=== PATIENT | female | born 1990 ===

== ENCOUNTER 2018-05-27 06:16 | Inpatient (IN) | payer OTHER ==
--- NOTE | 2018-05-17 13:19 | PAT Medication Instructions ---
Service Date May 17, 2018. Current Home Medication List Calcium Carbonate-Vitamin D (Calcium), 1 TAB PO QPM Multivit (), 1 TAB PO QPM Medication Instructions For Your Scheduled Surgery - Take the following medications as scheduled the night before surgery: Calcium Carbonate-Vitamin D (Calcium), 1 TAB PO QPM Multivit (), 1 TAB PO QPM If you have any questions please call us at [phone] or [phone] or [phone]
[2018-05-17 13:23] LABS: BASO % 0.2 %; BASO ABS # 0.02 K/uL (0-0.2); EOS % 0.7 %; EOS ABS # 0.08 K/uL (0-0.5); HEMATOCRIT 35.5 % (37-47); HEMOGLOBIN 12.1 g/dL (12.0-16.0); IG# 0.23 K/uL (0.00-0.02); LYMPH % 13.8 %; MEAN CELL VOLUME 87.2 fL (80-100); MEAN CORPUSCULAR HEMOGLOBIN 29.7 pg (25-34); MEAN CORPUSCULAR HGB CONC 34.1 g/dl (32-36); MEAN PLATELET VOLUME 10.8 fL (7.4-10.4); MONO % 6.6 %; MONO ABS # 0.72 K/uL (0.11-0.59); NEUT % 76.6 %; PLATELET COUNT 189 K/uL (130-400); RED CELL DISTRIBUTION WIDTH CV 13.3 % (11.5-14.5); RED CELL DISTRIBUTION WIDTH SD 42.6 fL (36.4-46.3); WHITE BLOOD COUNT 10.85 K/uL (4.8-10.8)
--- NOTE | 2018-05-24 17:35 | HISTORY & PHYSICAL EXAMINATION ---
DATE OF ADMISSION: 05/27/2018 HISTORY OF PRESENT ILLNESS: Emani is in her first . She will be 39 weeks on 05/27/2018. Her baby is in breech presentation and she is scheduled for . The patient was a late transfer of care, was breech on arrival for us when we received her at 35 weeks. She was getting her care originally in [place]. Patient is not interested in a trial of external cephalic version. PAST MEDICAL HISTORY: She is healthy. HISTORY: This is her first . Her blood type is O positive. LABORATORIES: Her labs have been negative. Chlamydia, gonorrhea, negative. HIV, hepatitis negative and her group B strep is negative. PAST SURGICAL HISTORY: None. MEDICATIONS: vitamins. MEDICATION ALLERGIES: None. SOCIAL HISTORY: She is . REVIEW OF SYSTEMS: Negative. PHYSICAL EXAMINATION: VITAL SIGNS: Stable. She is afebrile. Her weight is 173.2 pounds. CHEST: Clear. CARDIOVASCULAR: Normal rate and rhythm. No audible murmur. ABDOMEN: Gravid, 36 cm symphysis fundal height. heart rate tones 142. EXTREMITIES: Negative. IMPRESSION AND PLAN: The baby remains breech, was assessed by Dr. Chavez on 05/24/2018 and still breech. Please see other H+P, this was cutoff at this point , . MTDD
--- NOTE | 2018-05-24 17:36 | HISTORY & PHYSICAL EXAMINATION ---
DATE OF ADMISSION: 05/27/2018 HISTORY OF PRESENT ILLNESS: The patient is scheduled for a as she is in breech presentation and she will be at 39 weeks on 05/27/2018. This is her first . The patient was a late transfer at 35 weeks. She received her care in [place]. Her care was uncomplicated. Her labs were normal and as mentioned this is her first . PAST MEDICAL HISTORY: Healthy. PAST SURGICAL HISTORY: No major surgeries. MEDICATIONS: vitamins. MEDICATION ALLERGIES: None. REVIEW OF SYSTEMS: Negative. PHYSICAL EXAMINATION: VITAL SIGNS: Stable. She is afebrile. Weight is 173 pounds. CHEST: Clear. CARDIOVASCULAR: Normal rate and rhythm. No audible murmur. ABDOMEN: Gravid, symphysis fundal height 37 cm. EXTREMITIES: Negative. IMPRESSION AND PLAN: Offered external cephalic version and declined. The patient is breech presentation. We did not recommend labor for this. section was recommended. She agrees. Discussed risks including bleeding, infection, injury to bowel, bladder, ureter, vessels, deep vein thrombosis, and pulmonary embolus. Discussed possible injury to the baby as well. Alternatives discussed as well. The patient is scheduled for a low segment transverse section on 05/27/2018. Of course will make sure the baby is still in breech presentation at that time.
[~2018-05-27] VITALS: Ht 160 cm; Wt 78.6 kg
[2018-05-27] VITALS (9 sets, daily range): BP systolic 108–116; BP diastolic 66–74; PULSE 79–86; TEMP 36.6–36.7; O2SAT 94–99; Ht 160 cm; Wt 78.6 kg
[~2018-05-27 06:16] MED LIST: CALC-51 PO; CEFAZOLIN 2000MG IV PUSH 15 ML IV SCH; CEFAZOLIN IV 2,000 MG in SYRINGE 0 ML IV SCH; CITRIC ACID/SODIUM CITRATE 15 ML UDC PO SCH; LACTATED RINGER'S 1000ML 1,000 ML IV SCH; PRENTAB65 PO
[2018-05-27] MEDS ORDERED: PATIENT'S ALLERGY INFO NEEDS ENTERED SCH (09:45)
[2018-05-27] MEDS ORDERED: FENTANYL CITRATE INJ 50 MCG/1 ML 2 ML VIAL ONE (12:01)
[2018-05-27] MEDS ORDERED: MoRPHine SULFATE PF 1 MG/ML 10 ML AMP/VIAL ONE (12:01)
[2018-05-27] MEDS ORDERED: KETOROLAC TROMETHAMINE 30 MG/ML VIAL ONE (12:33)
[2018-05-27] MEDS ORDERED: ONDANSETRON INJ 2 MG/ML 2 ML VIAL ONE (12:33)
[2018-05-27] MEDS ORDERED: OXYTOCIN INJ 10 UNITS/ML VIAL ONE (12:33)
[2018-05-27] MEDS ORDERED: OXYTOCIN INJ 20 UNITS in LACTATED RINGER'S 1000ML 1,000 ML IV SCH (12:50)
--- NOTE | 2018-05-27 12:50 | [facility] Post Operative Brief Note ---
Immediate Operative Summary Operative Date May 27, 2018. Pre-Operative Diagnosis Intrauterine at 39 weeks gestation Primary caesarean section for breech presentation Post-Operative Diagnosis same Procedure(s) Performed Low segment transverse caesarean delivery for live femal at [address] Ramo Gunn [employer] Surgeon(s) Dr Howard Aguirre Estimated Blood Loss 600 CC Findings Consistent with Post-Op Diagnosis Specimens placenta cord blood cord blood gases (arterial and venous) Drains Grigsby Anesthesia Type Spinal Complication(s) none Disposition Accompanied Pt To Recover: no Disposition: L&D
[2018-05-27] MEDS ORDERED: SENNA 8.6 MG TAB PO PRN (13:00)
[2018-05-27] MEDS ORDERED: LANOLIN OINT EXT PRN (13:00)
[2018-05-27] MEDS ORDERED: BENZOCAINE 20% AER SPR 82.5 GM CAN EXT PRN (13:00)
[2018-05-27] MEDS ORDERED: SUPERCREAM 0.870 % 15GM JAR EXT PRN (13:00)
[2018-05-27] MEDS ORDERED: HYDROCORTISONE ACETATE 25 MG SUPP PR PRN (13:00)
[2018-05-27] MEDS ORDERED: MAGNESIUM HYDROXIDE SUSP 30 ML UDC PO PRN (13:00)
[2018-05-27] MEDS ORDERED: NALOXONE HCL INJ 1 MG in SODIUM CHLORIDE 0.9% 1000ML 1,000 ML IV PRN (13:09)
[2018-05-27] MEDS ORDERED: SODIUM CHLORIDE 0.9% 1000ML 1,000 ML IV PRN (13:09)
[2018-05-27] MEDS ORDERED: NALOXONE HCL INJ 0.08 MG in SYRINGE 1.8 ML IV PRN (13:09)
[2018-05-27] MEDS ORDERED: LACTATED RINGER'S 1000ML 500 ML IV PRN (13:09)
--- NOTE | 2018-05-27 13:11 | OPERATIVE REPORT ---
DATE OF OPERATION: 05/27/2018 PREOPERATIVE DIAGNOSIS: Intrauterine at 39 weeks, breech presentation. POSTOPERATIVE DIAGNOSIS: Intrauterine at 39 weeks, breech presentation. PROCEDURE: Low segment transverse section. SURGEON: Riley Gunn MD COIN MACHINE SERVICER REPAIRER: Howard Aguirre MD ESTIMATED BLOOD LOSS: 600 mL. FINDINGS: Consistent with postoperative diagnosis. SPECIMENS: Placenta, cord blood, cord gases. DRAINS: Grigsby catheter. ANESTHETIC: Spinal. COMPLICATIONS: None. DISPOSITION: Recovery room. DESCRIPTION OF PROCEDURE: Emani was given a spinal anesthetic. It should be noted that before this, ultrasound was done and confirmed breech position. After spinal, she received a Grigsby catheter. IV Ancef was given, prepped and draped and skin area was tested with pickups with teeth and found to be adequate for incision. A scalpel used to make a Pfannenstiel incision dissecting down through subcutaneous fat to the fascia in the midline. Fascia dissected laterally with the curved Snow scissors and then released superiorly and inferiorly from the rectus muscles with the curved Mayos. Rectus muscle split. Peritoneal cavity entered in a superior location. Once inside the peritoneal cavity, we enlarged the opening to allow exposure. Bladder retractor placed. Metzenbaums used to dissect the bladder flap away. Bladder retractor readjusted and a scalpel was used to make a low transverse incision. Entry was done bluntly with the scale tank operator's finger and then we extended the opening of the incision to allow exposure bluntly with the scale tank operator's fingers. Membranes were then ruptured. Fluid was clear. Baby was in tone breech position. Baby was delivered by flexion of the breech and pressure on the abdomen and then we were able to deliver this aspect of the baby. The back was then converted to anterior. The legs were then delivered by sweeping and then arms were delivered by sweeping them towards the chest. No excessive extension on the baby's head. Gentle traction, baby was then delivered, there was a loose nuchal cord which was passed prior to this. Live vigorous . Cord clamped and cut. Cord gases obtained. Cord blood obtained. IV Pitocin started. Placenta removed. Uterus exteriorized. We ensured all placenta removed with a moist lap. Uterus then closed with the usual fashion, a running 0 Monocryl locked and second reinforcing 0 Monocryl nonlocked. After generous irrigation and suction, hemostasis was excellent, including on placement of the uterus back in the peritoneal cavity. Fascia closed with 0 Vicryl, subcutaneous fat irrigated and closed with 3-0 Vicryl, 4-0 subcuticular Monocryl closures and Steri-Strips applied. Sponge and instrument counts correct and Steri-Strips applied. It should be noted the urine was clean at the end of the procedure. I attest to the content of the Intraoperative Record and any orders documented therein. Any exception s are noted below.
[2018-05-27] MEDS ORDERED: ONDANSETRON INJ 2 MG/ML 2 ML VIAL IV PRN (13:15)
[2018-05-27] MEDS ORDERED: MoRPHine SULFATE PF 1 MG/ML 10 ML AMP/VIAL EPI PRN (13:15)
[2018-05-27] MEDS ORDERED: PROMETHAZINE HCL INJ 6.25 MG in SODIUM CHLORIDE 0.9% 50ML 50 ML IV PRN (13:15)
[2018-05-27] MEDS ORDERED: MEPERIDINE HCL 25 MG/ML CARP IV PRN (13:15)
[2018-05-27] MEDS ORDERED: NALBUPHINE HCL INJ 10 MG/ML 10ML VIAL IV PRN (13:15)
[2018-05-27] MEDS ORDERED: NALOXONE HCL 0.4 MG/1 ML VIAL/CARP IV PRN (13:15)
[2018-05-27] MEDS ORDERED: NO NARCOTICS OR SEDATIVES SCH (13:15)
[2018-05-27] MEDS ORDERED: DiphenhydrAMINE HCL 50 MG/ML VIAL IV PRN (13:15)
[2018-05-27] MEDS ORDERED: MoRPHine SULFATE 4 MG/ML 1 ML CARP\\VIAL IV PRN (13:15)
[2018-05-27] MEDS ORDERED: EpHEDrine SULFATE INJ 50 MG/ML AMP IV PRN (13:15)
[2018-05-27] MEDS ORDERED: DC INTRASPINAL MORPHINE SCH (13:15)
[2018-05-27] MEDS ORDERED: KETOROLAC TROMETHAMINE 30 MG/ML VIAL IV. PRN (13:15)
--- NOTE | 2018-05-27 14:01 | Anesthesiology Progress Note ---
Anesthesia Post Op Note Date & Time May 27, 2018 at 14:00 Notes Mental Status: alert / awake / arousable, participated in evaluation Pt Amnestic to Procedure: Yes Nausea / Vomiting: adequately controlled Pain: adequately controlled Airway Patency, RR, SpO2: stable & adequate BP & HR: stable & adequate Hydration State: stable & adequate Neuraxial Anesthesia: was administered, sensory block is resolving Anesthetic Complications: no major complications apparent
[2018-05-27] MEDS: SIMETHICONE 80 MG CHEW PO SCH ×2 (17:00→19:30)
[2018-05-27] MEDS: DOCUSATE SODIUM 100 MG CAP PO SCH (19:30)
[2018-05-27] MEDS ORDERED: LACTATED RINGER'S 1000ML 1,000 ML IV SCH (21:00)
[2018-05-28] VITALS (13 sets, daily range): BP systolic 93–103; BP diastolic 55–66; PULSE 77–87; TEMP 36.5–37.3; O2SAT 92–97
[2018-05-28] MEDS ORDERED: CALCIUM CARBONATE 500 MG CHEWABLE PO PRN (00:45)
[2018-05-28] MEDS ORDERED: MEPERIDINE HCL 50 MG/ML CARP IV PRN ×2 (07:00)
[2018-05-28] MEDS ORDERED: ZOLPIDEM TARTRATE 5 MG TAB PO PRN (07:00)
[2018-05-28] MEDS ORDERED: DiphenhydrAMINE HCL 50 MG/ML VIAL IV PRN (07:00)
[2018-05-28] MEDS ORDERED: OXYCODONE/ACETAMINOPHEN 5-325 TAB PO PRN (07:00)
[2018-05-28] MEDS ORDERED: ONDANSETRON INJ 2 MG/ML 2 ML VIAL IV PRN (07:00)
[2018-05-28] MEDS ORDERED: PROMETHAZINE HCL INJ 25 MG in SODIUM CHLORIDE 0.9% 50ML 50 ML IV PRN (07:00)
[2018-05-28] MEDS ORDERED: KETOROLAC TROMETHAMINE 30 MG/ML VIAL IV. PRN (07:00)
--- NOTE | 2018-05-28 07:03 | Progress Note ---
Subjective May 28, 2018. Subjective conversation w/ patient, conversation w/ family, physical exam, chart review, lab review Ambulation: limited ambulation Voiding: corea catheter in place Passing Gas: Yes Diet Tolerance: Regular Diet Lochia: Small Feeding Type: Breast Feeding Pain: localized to area over incision Review of Systems Constitutional: No fever, No chills Respiratory: No cough, No wheezing, No shortness of breath Cardiac: No chest pain, No palpitations Breast: + breast pain (left) Abdomen: + pain (localized to area over incision; worse with movement), No nausea, No vomiting Objective Vital Signs Date Time Temp Pulse Resp B/P (MAP) Pulse Ox O2 Delivery O2 Flow Rate FiO2 05/28/18 05:20 18 95 05/28/18 04:34 36.5 87 18 93/55 (68) 95 Room Air 05/28/18 04:20 18 95 05/28/18 03:20 16 96 05/28/18 02:40 16 92 05/28/18 01:20 18 96 05/28/18 00:25 97 Room Air 05/28/18 00:25 36.6 87 18 98/65 (76) 97 Room Air 05/28/18 00:15 18 97 05/27/18 23:10 18 97 05/27/18 22:25 16 94 05/27/18 21:25 18 98 05/27/18 20:05 16 97 05/27/18 19:30 36.6 85 18 108/68 (81) 98 Room Air 05/27/18 19:05 18 98 05/27/18 18:05 18 98 05/27/18 18:05 79 18 112/74 (87) 98 Room Air 05/27/18 17:05 86 16 109/66 (80) 99 Room Air 05/27/18 17:05 16 99 05/27/18 16:05 18 99 05/27/18 16:05 36.7 86 18 116/73 (87) 99 Room Air 05/27/18 16:05 99 Room Air 05/27/18 16:05 99 Room Air Physical Exam General Appearance: WELL-APPEARING, WD/WN Respiratory/Chest: lungs clear, normal breath sounds, no respiratory distress, no accessory muscle use Cardiovascular: regular rate, rhythm, no gallop, no murmur Fundus: Firm, Non-Tender, Relation to Umbilicus (umbilicus) Extremities: normal inspection, no pedal edema, no calf tenderness Laboratory Results Last 24 Hours Test 05/28/18 06:00 Medications Current Inpatient Medications Medications (Trade) Dose Ordered Sig/Jing Route Start Time Stop Time Status Last Admin Dose Admin Oxytocin 20 units/ Lactated Ringer's 1,002 ml @ 125 mls/hr Q8H1M IV 05/27/18 12:50 06/26/18 12:49 05/27/18 19:30 125 MLS/HR Lactated Ringer's 1,000 ml @ 125 mls/hr Q8H IV 05/27/18 21:00 06/26/18 20:59 05/28/18 03:34 125 MLS/HR Ketorolac Tromethamine (Toradol Inj) 30 mg Q6H PRN IV. 05/28/18 07:00 06/02/18 06:59 Meperidine HCl (Demerol Inj) 50 mg Q4H PRN IV 05/28/18 07:00 06/11/18 06:59 Meperidine HCl (Demerol Inj) 75 mg Q4H PRN IV 05/28/18 07:00 06/11/18 06:59 Oxycodone/ Acetaminophen (Percocet 5-325mg Tab) 1 tab Q4H PRN PO 05/28/18 07:00 06/11/18 06:59 Oxycodone/ Acetaminophen (Percocet 5-325mg Tab) 2 tab Q4H PRN PO 05/28/18 07:00 06/11/18 06:59 Ibuprofen (Motrin Tab) 600 mg Q4H PRN PO 05/27/18 13:00 06/26/18 12:59 Promethazine HCl 25 mg/Sodium Chloride 51 ml @ 204 mls/hr Q4H PRN IV 05/28/18 07:00 06/27/18 06:59 Ondansetron HCl (Zofran Inj) 4 mg Q4H PRN IV 05/28/18 07:00 06/27/18 06:59 Prenat Multivit/ [place]/Iron/Folic Ac ( Vitamin Tab) 1 tab DAILY PO 05/28/18 08:00 06/27/18 07:59 Bisacodyl (Dulcolax Tab) 5 mg HS ONCE PO 05/28/18 22:00 05/28/18 22:01 Bisacodyl (Dulcolax Supp) 10 mg PRN PRN [place] 05/29/18 22:45 06/28/18 22:44 Docusate Sodium (coLACE CAP) 100 mg BID PO 05/27/18 20:00 06/26/18 19:59 05/27/18 19:30 100 MG Magnesium Hydroxide (Milk Of Magnesia Susp) 30 ml HS PRN PO 05/27/18 13:00 06/26/18 12:59 Cocaine HCl (Supercream 0.870% Cr) BID PRN EXT 05/27/18 13:00 06/10/18 12:59 Lanolin (Lanolin Oint) PRN PRN EXT 05/27/18 13:00 06/26/18 12:59 Hydrocortisone Acetate (Anusol Hc Supp) 25 mg BID PRN [place] 05/27/18 13:00 06/26/18 12:59 Benzocaine (Dermoplast Aero Spr) 1 appln PRN PRN EXT 05/27/18 13:00 06/26/18 12:59 Zolpidem Tartrate (Ambien Tab) 5 mg HSZ PRN PO 05/28/18 07:00 06/27/18 06:59 Simethicone (Mylicon Chew Tab) 80 mg QID PO 05/27/18 17:00 06/26/18 16:59 05/27/18 19:30 80 MG Diphenhydramine HCl (Benadryl Cap) 25 mg QID PRN PO 05/28/18 07:00 06/27/18 06:59 Diphenhydramine HCl (Benadryl Inj) 25 mg QID PRN IV 05/28/18 07:00 06/27/18 06:59 Senna (Senokot Tab) 17.2 mg HS PRN PO 05/27/18 13:00 06/26/18 12:59 Naloxone HCl (Narcan Inj) 0.1 mg UD PRN IV 05/27/18 13:15 05/28/18 07:00 Diphenhydramine HCl (Benadryl Inj) 25 mg Q6H PRN IV 05/27/18 13:15 05/28/18 07:00 Nalbuphine HCl (Nubain Inj) 5 mg Q10M PRN IV 05/27/18 13:15 05/28/18 07:00 Naloxone HCl 1 mg/ Sodium Chloride 1,002.5 ml @ 50 mls/hr Q20H3M PRN IV 05/27/18 13:09 05/28/18 07:00 Ondansetron HCl (Zofran Inj) 4 mg Q6H PRN IV 05/27/18 13:15 05/28/18 07:00 05/27/18 18:22 4 MG Promethazine HCl 6.25 mg/Sodium Chloride 50.25 ml @ 200 mls/hr Q6H PRN IV 05/27/18 13:15 05/28/18 07:00 Ketorolac Tromethamine (Toradol Inj) 30 mg Q6H PRN IV. 05/27/18 13:15 05/28/18 07:00 05/28/18 01:05 30 MG Meperidine HCl (Demerol Inj) 25 mg Q15M PRN IV 05/27/18 13:15 05/28/18 07:00 05/28/18 06:45 25 MG Miscellaneous Information (Dc Intraspinal Morphine) 1 ea ONE N/A 05/27/18 13:15 05/28/18 07:00 Miscellaneous Information (No Narcotics Or Sedatives) 1 ea UD N/A 05/27/18 13:15 05/28/18 07:00 Naloxone HCl 0.08 mg/Syringe 2 ml @ 1 mls/min Q2M PRN IV 05/27/18 13:09 05/28/18 07:00 Morphine Sulfate (MoRPHine SULFATE INJ) 4 mg Q2H PRN IV 05/27/18 13:15 05/28/18 07:00 Lactated Ringer's 500 ml @ 999 mls/hr Q31M PRN IV 05/27/18 13:09 05/28/18 07:00 Ephedrine Sulfate (EpHEDrine SULFATE INJ) 10 mg Q5M PRN IV 05/27/18 13:15 05/28/18 07:00 Morphine Sulfate (Duramorph Pf Inj) TODAY PRN EPI 05/27/18 13:15 05/28/18 07:00 Sodium Chloride 1,000 ml @ 15 mls/hr Q24H PRN IV 05/27/18 13:09 05/28/18 07:00 Calcium Carbonate (Tums Chew Tab) 500 mg Q4 PRN PO 05/28/18 00:45 06/27/18 00:44 05/28/18 01:23 500 MG Assessment and Plan Problem List post op Post-Op Day#: 1 Continue Routine Care: - Vital signs reviewed and within normal limits - Will D/C Corea - Will monitor and manage pain to make patient comfortable - Encourage ambulation and breast feeding - All questions and concerns addressed Resident Physician Supervision Note: I was present with Dr. Garcia during the history and exam. I discussed the case with the resident and agree with the findings and plan as documented in the note. Any exceptions or clarifications are listed here: [None] Documented By: Riley Gunn
[2018-05-28 07:53] LABS: BASO % 0.1 %; BASO ABS # 0.02 K/uL (0-0.2); EOS ABS # 0.14 K/uL (0-0.5); HEMATOCRIT 32.4 % (37-47); HEMOGLOBIN 11.2 g/dL (12.0-16.0); IG# 0.12 K/uL (0.00-0.02); LYMPH % 10.6 %; LYMPH ABS # 1.49 K/uL (1.2-3.4); MEAN CELL VOLUME 86.6 fL (80-100); MEAN CORPUSCULAR HEMOGLOBIN 29.9 pg (25-34); MEAN CORPUSCULAR HGB CONC 34.6 g/dl (32-36); MEAN PLATELET VOLUME 11.2 fL (7.4-10.4); MONO % 4.4 %; MONO ABS # 0.62 K/uL (0.11-0.59); NEUT ABS # 11.65 K/uL (1.4-6.5); PLATELET COUNT 178 K/uL (130-400); RED CELL DISTRIBUTION WIDTH SD 41.2 fL (36.4-46.3); WHITE BLOOD COUNT 14.04 K/uL (4.8-10.8)
[2018-05-28] MEDS: SIMETHICONE 80 MG CHEW PO SCH ×4 (09:01→20:00)
[2018-05-28] MEDS: PRENATAL VITAMIN TAB PO SCH (09:01)
[2018-05-28] MEDS: DOCUSATE SODIUM 100 MG CAP PO SCH ×2 (09:01→20:00)
[2018-05-28] MEDS: OXYCODONE/ACETAMINOPHEN 5-325 TAB PO PRN ×3 (09:02→20:00)
[2018-05-28] MEDS: IBUPROFEN 600 MG TAB PO PRN ×3 (09:03→20:01)
[2018-05-28] MEDS ORDERED: BISACODYL 5 MG TABEC PO ONE (22:00)
[2018-05-29] MEDS: IBUPROFEN 600 MG TAB PO PRN ×5 (01:45→23:25)
[2018-05-29] MEDS: OXYCODONE/ACETAMINOPHEN 5-325 TAB PO PRN ×4 (01:46→23:25)
[2018-05-29 06:39] LABS: HEMATOCRIT 31.6 % (37-47); HEMOGLOBIN 10.8 g/dL (12.0-16.0)
--- NOTE | 2018-05-29 06:52 | Progress Note ---
Subjective May 29, 2018. Subjective conversation w/ patient, conversation w/ family, physical exam, chart review, lab review Ambulation: ambulating normally Voiding: no voiding problems Passing Gas: Yes Diet Tolerance: Regular Diet Lochia: Small Feeding Type: Breast Feeding Pain: complains of left breast and incisional pain from Comment: pain is improved with analgesics Problem List status post Review of Systems Constitutional: No fever, No chills Respiratory: No cough, No wheezing, No shortness of breath Cardiac: No chest pain, No palpitations Breast: + breast pain (left, improved with analgesics) Abdomen: + pain (localized to surgical incision, improved with analgesics) Female : No dysuria Objective Vital Signs Date Time Temp Pulse Resp B/P (MAP) Pulse Ox O2 Delivery O2 Flow Rate FiO2 05/28/18 23:25 36.5 77 16 103/66 (78) 96 Room Air 05/28/18 20:55 36.7 81 16 95/57 (70) 97 Room Air 05/28/18 20:55 Room Air 05/28/18 15:20 36.6 81 16 99/60 (73) Room Air 05/28/18 15:20 Room Air 05/28/18 11:50 37.3 82 16 103/66 (78) 97 Room Air 05/28/18 08:05 37.1 85 20 94/58 (70) 97 Room Air 05/28/18 07:45 Room Air Physical Exam General Appearance: WELL-APPEARING, WD/WN Respiratory/Chest: lungs clear, normal breath sounds, no respiratory distress, no accessory muscle use Cardiovascular: regular rate, rhythm, no gallop, no murmur Fundus: Firm, Non-Tender, Relation to Umbilicus (inferior to umbilicus) Extremities: no calf tenderness Laboratory Results Last 24 Hours Test 05/28/18 07:15 05/29/18 06:18 White Blood Count 14.04 K/uL Red Blood Count 3.74 M/uL Hemoglobin 11.2 g/dL 10.8 g/dL Hematocrit 32.4 % 31.6 % Mean Corpuscular Volume 86.6 fL Mean Corpuscular Hemoglobin 29.9 pg Mean Corpuscular Hemoglobin Concent 34.6 g/dl Platelet Count 178 K/uL Mean Platelet Volume 11.2 fL Neutrophils (%) (Auto) 83.0 % Lymphocytes (%) (Auto) 10.6 % Monocytes (%) (Auto) 4.4 % Eosinophils (%) (Auto) 1.0 % Basophils (%) (Auto) 0.1 % Neutrophils # (Auto) 11.65 K/uL Lymphocytes # (Auto) 1.49 K/uL Monocytes # (Auto) 0.62 K/uL Eosinophils # (Auto) 0.14 K/uL Basophils # (Auto) 0.02 K/uL RDW Standard Deviation 41.2 fL RDW Coefficient of Variation 13.0 % Immature Granulocyte % (Auto) 0.9 % Immature Granulocyte # (Auto) 0.12 K/uL Medications Current Inpatient Medications Medications (Trade) Dose Ordered Sig/Jing Route Start Time Stop Time Status Last Admin Dose Admin Oxytocin 20 units/ Lactated Ringer's 1,002 ml @ 125 mls/hr Q8H1M IV 05/27/18 12:50 06/26/18 12:49 05/27/18 19:30 125 MLS/HR Lactated Ringer's 1,000 ml @ 125 mls/hr Q8H IV 05/27/18 21:00 06/26/18 20:59 05/28/18 03:34 125 MLS/HR Ketorolac Tromethamine (Toradol Inj) 30 mg Q6H PRN IV. 05/28/18 07:00 06/02/18 06:59 Meperidine HCl (Demerol Inj) 50 mg Q4H PRN IV 05/28/18 07:00 06/11/18 06:59 Meperidine HCl (Demerol Inj) 75 mg Q4H PRN IV 05/28/18 07:00 06/11/18 06:59 Oxycodone/ Acetaminophen (Percocet 5-325mg Tab) 1 tab Q4H PRN PO 05/28/18 07:00 06/11/18 06:59 05/29/18 05:40 1 TAB Oxycodone/ Acetaminophen (Percocet 5-325mg Tab) 2 tab Q4H PRN PO 05/28/18 07:00 06/11/18 06:59 Ibuprofen (Motrin Tab) 600 mg Q4H PRN PO 05/27/18 13:00 06/26/18 12:59 05/29/18 05:40 600 MG Promethazine HCl 25 mg/Sodium Chloride 51 ml @ 204 mls/hr Q4H PRN IV 05/28/18 07:00 06/27/18 06:59 Ondansetron HCl (Zofran Inj) 4 mg Q4H PRN IV 05/28/18 07:00 06/27/18 06:59 Prenat Multivit/ [place]/Iron/Folic Ac ( Vitamin Tab) 1 tab DAILY PO 05/28/18 08:00 06/27/18 07:59 05/28/18 09:01 1 TAB Bisacodyl (Dulcolax Supp) 10 mg PRN PRN [place] 05/29/18 22:45 06/28/18 22:44 Docusate Sodium (coLACE CAP) 100 mg BID PO 05/27/18 20:00 06/26/18 19:59 05/28/18 20:00 100 MG Magnesium Hydroxide (Milk Of Magnesia Susp) 30 ml HS PRN PO 05/27/18 13:00 06/26/18 12:59 Cocaine HCl (Supercream 0.870% Cr) BID PRN EXT 05/27/18 13:00 06/10/18 12:59 Lanolin (Lanolin Oint) PRN PRN EXT 05/27/18 13:00 06/26/18 12:59 Hydrocortisone Acetate (Anusol Hc Supp) 25 mg BID PRN [place] 05/27/18 13:00 06/26/18 12:59 Benzocaine (Dermoplast Aero Spr) 1 appln PRN PRN EXT 05/27/18 13:00 06/26/18 12:59 Zolpidem Tartrate (Ambien Tab) 5 mg HSZ PRN PO 05/28/18 07:00 06/27/18 06:59 Simethicone (Mylicon Chew Tab) 80 mg QID PO 05/27/18 17:00 06/26/18 16:59 05/28/18 20:00 80 MG Diphenhydramine HCl (Benadryl Cap) 25 mg QID PRN PO 05/28/18 07:00 06/27/18 06:59 Diphenhydramine HCl (Benadryl Inj) 25 mg QID PRN IV 05/28/18 07:00 06/27/18 06:59 Senna (Senokot Tab) 17.2 mg HS PRN PO 05/27/18 13:00 06/26/18 12:59 Calcium Carbonate (Tums Chew Tab) 500 mg Q4 PRN PO 05/28/18 00:45 06/27/18 00:44 05/28/18 01:23 500 MG Assessment and Plan Problem List status post Post-Op Day#: 2 Continue Routine Care: - Vital signs reviewed and within normal limits - Will monitor and manage pain with analgesics to make patient comfortable - Encourage ambulation and breast feeding - All questions and concerns addressed Resident Physician Supervision Note: I interviewed and examined the patient. Discussed with Dr. Garcia and agree with findings and plan as documented in the note. Any exceptions or clarifications are listed here: [None] Documented By: Elise Guerrero
[2018-05-29 07:42] VITALS: BP 107/70; PULSE 80; TEMP 36.6; O2SAT 97
[2018-05-29] MEDS: PRENATAL VITAMIN TAB PO SCH (08:30)
[2018-05-29] MEDS: SIMETHICONE 80 MG CHEW PO SCH ×4 (08:30→20:02)
[2018-05-29] MEDS: DOCUSATE SODIUM 100 MG CAP PO SCH ×2 (08:30→20:02)
[2018-05-29] MEDS ORDERED: OXYC-57 PO (14:57)
[2018-05-29] MEDS ORDERED: MTR600X PO (14:57)
[2018-05-29 15:40] VITALS: BP 108/75; PULSE 86; TEMP 36.5; O2SAT 97
[2018-05-29] MEDS ORDERED: BISACODYL 10 MG SUPP PR PRN (22:45)
[2018-05-30 00:25] VITALS: BP 105/68; PULSE 87; TEMP 36.7; O2SAT 94
[2018-05-30] MEDS: OXYCODONE/ACETAMINOPHEN 5-325 TAB PO PRN ×4 (03:04→15:42)
[2018-05-30] MEDS: IBUPROFEN 600 MG TAB PO PRN ×4 (03:04→15:43)
--- NOTE | 2018-05-30 06:49 | Progress Note ---
Subjective May 30, 2018. Subjective conversation w/ patient, conversation w/ family, physical exam, chart review, lab review Ambulation: ambulating normally Voiding: no voiding problems Passing Gas: Yes Diet Tolerance: Regular Diet Lochia: Small Feeding Type: Breast Feeding Pain: localized to incision Review of Systems Constitutional: No fever, No chills Respiratory: No cough, No wheezing, No shortness of breath Cardiac: No chest pain Breast: + breast pain (bilaterally) Abdomen: + pain (localized to surgical incision and made better with analgesics ), No nausea, No vomiting Female : No dysuria No headache Objective Vital Signs Date Time Temp Pulse Resp B/P (MAP) Pulse Ox O2 Delivery O2 Flow Rate FiO2 05/30/18 00:25 94 Room Air 05/30/18 00:25 36.7 87 20 105/68 (80) 94 Room Air 05/29/18 15:40 36.5 86 16 108/75 (86) 97 Room Air 05/29/18 15:40 97 Room Air 05/29/18 07:42 97 Room Air 05/29/18 07:42 36.6 80 18 107/70 (82) 97 Room Air Physical Exam General Appearance: WELL-APPEARING, WD/WN, other (DVT compression boots in place) Respiratory/Chest: lungs clear, normal breath sounds, no respiratory distress, no accessory muscle use Cardiovascular: regular rate, rhythm, no gallop, no murmur Fundus: Firm, Non-Tender, Relation to Umbilicus (inferior to umbilicus) Extremities: no calf tenderness Medications Current Inpatient Medications Medications (Trade) Dose Ordered Sig/Jing Route Start Time Stop Time Status Last Admin Dose Admin Oxytocin 20 units/ Lactated Ringer's 1,002 ml @ 125 mls/hr Q8H1M IV 05/27/18 12:50 06/26/18 12:49 05/27/18 19:30 125 MLS/HR Lactated Ringer's 1,000 ml @ 125 mls/hr Q8H IV 05/27/18 21:00 06/26/18 20:59 05/28/18 03:34 125 MLS/HR Ketorolac Tromethamine (Toradol Inj) 30 mg Q6H PRN IV. 05/28/18 07:00 06/02/18 06:59 Meperidine HCl (Demerol Inj) 50 mg Q4H PRN IV 05/28/18 07:00 06/11/18 06:59 Meperidine HCl (Demerol Inj) 75 mg Q4H PRN IV 05/28/18 07:00 06/11/18 06:59 Oxycodone/ Acetaminophen (Percocet 5-325mg Tab) 1 tab Q4H PRN PO 05/28/18 07:00 06/11/18 06:59 05/30/18 03:04 1 TAB Oxycodone/ Acetaminophen (Percocet 5-325mg Tab) 2 tab Q4H PRN PO 05/28/18 07:00 06/11/18 06:59 05/29/18 19:02 2 TAB Ibuprofen (Motrin Tab) 600 mg Q4H PRN PO 05/27/18 13:00 06/26/18 12:59 05/30/18 03:04 600 MG Promethazine HCl 25 mg/Sodium Chloride 51 ml @ 204 mls/hr Q4H PRN IV 05/28/18 07:00 06/27/18 06:59 Ondansetron HCl (Zofran Inj) 4 mg Q4H PRN IV 05/28/18 07:00 06/27/18 06:59 Prenat Multivit/ [place]/Iron/Folic Ac ( Vitamin Tab) 1 tab DAILY PO 05/28/18 08:00 06/27/18 07:59 05/29/18 08:30 1 TAB Bisacodyl (Dulcolax Supp) 10 mg PRN PRN [place] 05/29/18 22:45 06/28/18 22:44 Docusate Sodium (coLACE CAP) 100 mg BID PO 05/27/18 20:00 06/26/18 19:59 05/29/18 20:02 100 MG Magnesium Hydroxide (Milk Of Magnesia Susp) 30 ml HS PRN PO 05/27/18 13:00 06/26/18 12:59 Cocaine HCl (Supercream 0.870% Cr) BID PRN EXT 05/27/18 13:00 06/10/18 12:59 Lanolin (Lanolin Oint) PRN PRN EXT 05/27/18 13:00 06/26/18 12:59 Hydrocortisone Acetate (Anusol Hc Supp) 25 mg BID PRN [place] 05/27/18 13:00 06/26/18 12:59 Benzocaine (Dermoplast Aero Spr) 1 appln PRN PRN EXT 05/27/18 13:00 06/26/18 12:59 Zolpidem Tartrate (Ambien Tab) 5 mg HSZ PRN PO 05/28/18 07:00 06/27/18 06:59 Simethicone (Mylicon Chew Tab) 80 mg QID PO 05/27/18 17:00 06/26/18 16:59 05/29/18 20:02 80 MG Diphenhydramine HCl (Benadryl Cap) 25 mg QID PRN PO 05/28/18 07:00 06/27/18 06:59 Diphenhydramine HCl (Benadryl Inj) 25 mg QID PRN IV 05/28/18 07:00 06/27/18 06:59 Senna (Senokot Tab) 17.2 mg HS PRN PO 05/27/18 13:00 06/26/18 12:59 05/29/18 17:33 17.2 MG Calcium Carbonate (Tums Chew Tab) 500 mg Q4 PRN PO 05/28/18 00:45 06/27/18 00:44 05/28/18 01:23 500 MG Assessment and Plan Problem List Status post Caesarean Section Post-Op Day#: 3 Continue Routine Care: - Vital signs reviewed and within normal limits - discussed discharge instructions with plan to discharge home today - all concerns and questions addressed Resident Physician Supervision Note: I interviewed and examined the patient. Discussed with Dr. Garcia and agree with findings and plan as documented in the note. Any exceptions or clarifications are listed here: Pt planning on returning to [place] in 2-3 weeks. Advise patient to make a pp visit prior to travelling. Documented By: Howard Aguirre
[2018-05-30] MEDS: PRENATAL VITAMIN TAB PO SCH (07:27)
--- NOTE | 2018-05-30 07:27 | Discharge Instructions ---
Discharge Instructions Date of Service May 30, 2018. Admission Reason for Admission: Breech Presentation #756 Discharge Discharge Diagnosis / Problem: status post Discharge Goals Goal(s): Routine recovery after surgery Medications Continue Dispensed Medications: supercream, dermaplast, tucks, lansinoh Activity Recommendations Activity Limitations: per Instructions/Follow-up section . Instructions / Follow-Up Instructions / Follow-Up ACTIVITY RECOMMENDATIONS: * Gradual return to full activity over the next 2-3 weeks. * No lifting - nothing heavier than baby over the next 2-3 weeks. * Do not engage in vigorous exercise, sexual activity or sports until cleared by your physician. * Do not drive or operate any motorized equipment until cleared by your physician. * You may shower/bathe daily. MEDICATIONS: For discomfort or pain, you may use Acetaminophen (Tylenol), Ibuprofen (Advil), or Naproxen (Aleve) following the package directions. For constipation you may use Colace following the package directions. BREAST CARE: If you are not breast feeding: * Wear a supportive bra 24 hours a day for one to two weeks. * Avoid stimulating your breasts and nipples as much as possible during the first few weeks after delivery. * When taking a shower, have the warm water hit your back, not breasts. * When your breasts feel full, apply ice packs. Usually three to four times a day helps ease the discomfort. * Take a mild pain medication (Tylenol / Motrin) when you are uncomfortable. If breast feeding: * Use breast milk to lubricate nipples. Lansinoh cream may be used for sore nipples. You do not need to remove cream prior to breast feeding. If using a different brand of cream, check the label for directions regarding removal of cream prior to nursing. * Wear a supportive bra. * If having problems with breasts or breast feeding, call a design sales consultant or your health care provider. SPECIAL CARE INSTRUCTIONS: When you are discharged from the hospital, it is important for you to follow the instructions listed below: * During the first week at home, you should be able to care for yourself and your baby. In addition, the usual light household activities are encouraged. * Limit your activities to the way you feel. Do not try to clean the house or move furniture. Be sensible. * If you actively engage in sports and have done so up until the time of your delivery, you may resume these activities as soon as you feel able. This may take up to one month or even longer. Use good judgment. * Continue to take your vitamins for at least six weeks after the of your baby. * Your diet need not be limited unless you were on a special diet before your delivery. Breast-feeding mothers need around 2500 calories per day and at least 64-80 ounces of fluid per day (8 to 10 glasses). * You should eat foods from the four major food groups. Crash diets or fad diets are to be avoided. Eating lean meats, fresh fruits and vegetables, low-fat dairy products, high fiber foods and a regular exercise program, will help you get back to your pre- weight without putting your health at risk. * Constipation is sometimes a problem after delivery. Take a mild laxative as needed. If breast feeding, Milk of Magnesia is acceptable to use. You may use a suppository or Fleets enema. * A daily shower or tub bath is suggested. Wash incision daily with warm soapy water and pat dry. It doesn't need to be covered unless drainage is present. * A bloody vaginal discharge will usually continue until around four weeks . A small amount of bleeding may continue for as long as six weeks. Vaginal discharge changes from the bright red bleeding after delivery to pink then brownish and finally yellowish-pink before becoming white and disappearing. * Bleeding may increase with activity. Your first period may come in 4-8 weeks. If you are breast feeding, your period may be delayed even longer. * Cokedale (sex) can begin whenever both you and your partner feel comfortable and do not have any form of genital infection. It is recommended that you wait at least six weeks for internal and external healing to occur. If you have questions, please talk to your health care practitioner. A condom should be used to prevent infection and . * Foreplay, gentle intercourse and lubrication is very important the first several times to prevent pain. A water-based lubricant such as K-Y jelly or Astroglide may be used. * If you have RH negative blood and your baby is RH positive, you will receive RHOGAM by injection prior to discharge. The nurse will give you a card to keep with you that has the date and place that you received RHOGAM after delivery. * During your care, you had a Rubella screen done to check for the presence of rubella antibodies in your blood. If your test was negative, you will receive a Rubella vaccine prior to discharge. This vaccine may cause a fever, soreness at the injection site and flu-like symptoms. If these symptoms persist, notify your health care practitioner. is not advised for one month after a Rubella vaccine. * Verbalizes understanding of car seat law as reviewed with patient nursing. * Car Seat hand-out given and reviewed with patient by nursing. * Shaken baby information reviewed with patient by nursing. Call you doctor if: * Heavy bleeding (saturating several pads an hour) or passing clots the size of your fist. * A fever >101 degrees F (38.3 degrees C) on two occasions four hours apart and /or chills. * Unusual pain in the pelvic or vaginal areas. * Call the doctor for any increased redness, drainage or swelling around the incision and any pain unrelieved by prescribed pain medication. * "Baby Blues" lasting longer than two weeks. If you have any questions or concerns, call your health care practitioner at . FOLLOW UP VISIT: * Please call the office at to schedule a 6 week examination. It is important you keep this appointment. It is important for you to make arrangements for either yearly or twice yearly check-ups thereafter. Current Hospital Diet Patient's current hospital diet: Regular OB Diet Discharge Diet Recommended Diet: Regular Diet Procedures Procedures Performed: Low segment transverse caesarean delivery for live femal infant at 1227 Pending Studies Studies pending at discharge: no Medical Emergencies . Who to Call and When: Medical Emergencies: If at any time you feel your situation is an emergency, please call [phone] immediately. . Non-Emergent Contact Non-Emergency issues call your: Primary Care Provider . . "Provider Documentation" section prepared by Jass Garcia. .
[2018-05-30] MEDS: SIMETHICONE 80 MG CHEW PO SCH ×2 (07:28→12:02)
[2018-05-30] MEDS: DOCUSATE SODIUM 100 MG CAP PO SCH (07:28)
[2018-05-30 07:45] VITALS: BP 107/69; TEMP 36.6; O2SAT 98
[2018-05-30] MEDS ORDERED: CLC100 PO (07:55)
[2018-05-30 09:52] VITALS: BP 107/69; PULSE 87; TEMP 36.6; O2SAT 98
--- NOTE | 2018-06-02 13:24 | DISCHARGE SUMMARY ---
HOSPITAL COURSE: Patient had a for breech presentation on May 27. Procedure uncomplicated. Operative note in the chart. On postop day 3, she met discharge criteria. She was assessed by the team. At that time, she was ambulating well, tolerating an oral diet. Pain was well controlled and no extremity pain. PHYSICAL EXAMINATION: VITAL SIGNS: Stable. She is afebrile. SKIN: Incision clean, dry, and intact. EXTREMITIES: Negative. IMPRESSION AND PLAN: Postop day #3. Meets criteria. Discharged home with pain medication. Note: The patient is returning home to [place] in 2 to 3 weeks, so she was advised to make a postop appointment prior to this.
== END 2018-05-30 16:14 | disposition home or self-care (01) | DRG 766 ==
LOC: C.LD 09:01 → C.OBG 16:31
PROVIDERS: ADMIT Obstetrics & Gynecology; ATTEND Obstetrics & Gynecology
PROC: 10D00Z1 Extraction of Products of Conception, Low, Open Approach (ICD-10-PCS; principal; 2018-05-27 10:30)
DX: O32.1XX0 Maternal care for breech presentation, not applicable or unspecified (principal); O69.81X0 Labor and delivery complicated by cord around neck, without compression, not applicable or unspecified; Z3A.39 39 weeks gestation of pregnancy; Z37.0 Single live birth